=== PATIENT | male | born 1995 | race Caucasian/White ===

== ENCOUNTER 2017-06-06 17:54 | Emergency (ER) | payer SELFPAY ==
[~2017-06-06] VITALS: Ht 182.9 cm; Wt 97.0 kg
[2017-06-06 17:55] VITALS: BP 144/84
== END 2017-06-06 18:39 | disposition home or self-care (01) ==
LOC: ED 18:32
DX: Z04.1 Encounter for examination and observation following transport accident (principal)
CPT/HCPCS: 99281

== ENCOUNTER 2021-02-25 10:16 | Emergency (ER) | payer SELFPAY ==
[~2021-02-25] VITALS: Ht 185.4 cm; Wt 112.7 kg
[2021-02-25] MEDS ORDERED: SODIUM CHLORIDE FLUSH 10ML SYR IVF ONE (11:00)
[2021-02-25] MEDS ORDERED: SODIUM CHLORIDE 0.9% 1,000ML IVBOLUS ONE (11:00)
[2021-02-25 11:19] LABS: BASOPHILS % (AUTO) 0 % (0-1); EOSINOPHILS % (AUTO) 1 % (1-7); LYMPHOCYTES % (AUTO) 39 % (22-44); MEAN CORPUSCULAR HEMOGLOBIN 31.7 pg (27.5-34.5); MEAN PLATELET VOLUME 9.7 fL (7.4-10.4); MONOCYTES % (AUTO) 8 % (2-9); NEUTROPHILS % (AUTO) 51 % (42-75); PLATELET COUNT 216 x10^3/uL (130-400); RED BLOOD COUNT 4.68 x10^6/uL (4.38-5.82); RED CELL DISTRIBUTION WIDTH 13.5 % (9.4-14.8)
[2021-02-25 11:29] LABS: ALANINE AMINOTRANSFERASE 34 U/L (12-78); ALBUMIN 3.9 g/dL (3.4-5.0); ANION GAP 8 mmol/L (5-15); CALCIUM 8.4 mg/dL (8.5-10.1); CHLORIDE 110 mmol/L (98-107)
[2021-02-25 11:31] LABS: MD NO
--- NOTE | 2021-02-25 11:31 | NUR ---
PT BIB MOM VIA POV. PER PT HE HAS C/O CHEST PAIN SINCE SATURDAY. PT REPORTS FURTHER CHEST PAIN AND SOB TODAY. PT ALSO REPORTING EPISODES OF SYNCOPE AND NEAR SYNCOPE THE LAST 3 DAYS. PT REPORTING USE OF ALCOHOL, COCAINE, AND ENERGY DRINKS OVER THE WEEKEND. PT ALSO HAS SUNBURN TO LEFT ARM WITH BLISTERING. PT RESTING IN [facility], MONITORING IN PLACE, NADN AT THIS TIME, [facility].
[2021-02-25 11:34] LABS: ALKALINE PHOSPHATASE 55 U/L (45-117); BILIRUBIN,TOTAL 0.2 mg/dL (0.2-1.0); CREATINE KINASE, TOTAL 220 U/L (39-308); TOTAL PROTEIN 7.4 g/dL (6.4-8.2); TROPONIN I < 0.015 ng/mL (0.000-0.045)
[2021-02-25 12:26] VITALS: BP 129/81
[2021-02-25] MEDS ORDERED: NEOSPORIN OINT. PKT 1 PACKET ONE (12:58)
[2021-02-25] MEDS ORDERED: DIPH,PERTUSS(ACELL),TET VAC/PF 0.5 ML IM-VACC ONE ×2 (12:59→13:00)
[2021-02-25] MEDS ORDERED: BACITRACIN ZINC OINT 500U/GM, 0.9 GM TP ONE (13:00)
== END 2021-02-25 13:09 | disposition home or self-care (01) ==
LOC: ED 11:45
DX: R07.89 Other chest pain (principal); R55 Syncope and collapse; L55.1 Sunburn of second degree; F10.20 Alcohol dependence, uncomplicated; Y90.0 Blood alcohol level of less than 20 mg/100 ml; F17.210 Nicotine dependence, cigarettes, uncomplicated; R94.31 Abnormal electrocardiogram [ECG] [EKG]
CPT/HCPCS: 36415; 71045; 80053; 82550; 83735; 84484; 85025; 93005; 96360; 99285; 99406; J7030